=== PATIENT | male | born 1965 | race Two or more races ===

== ENCOUNTER 2016-08-19 07:30 | Emergency (ER) | payer MEDICAID ==
[~2016-08-19] VITALS: Ht 180.3 cm; Wt 81.6 kg
[~2016-08-19 07:30] MED LIST: BACLOFEN10 MG ORAL; CLINDAMYCIN HC300 MG ORAL; CLOTRIMAZOLE15 GM TOPIC; IBUPROFEN600 MG ORAL; KEFLEX500 MG ORAL; NAPROSYN500 M1 ORAL; NORCO 5-325 TA1 EACH ORAL; VICODIN 5-5001 EACH PO
[2016-08-19] MEDS ORDERED: NKM (07:45)
[2016-08-19] MEDS ORDERED: Clindamycin 900mg 50 ML IVPB ONE (08:30)
[2016-08-19] MEDS ORDERED: Tubing IV Cassette IV ONE (08:34)
[2016-08-19 08:36] LABS: BASOPHILS % (AUTO) 0.9 % (0.0-2.0); EOSINOPHILS % (AUTO) 1.3 % (0.0-3.0); LYMPHOCYTES % (AUTO) 16.2 % (20.0-45.0); MEAN CORPUSCULAR HEMOGLOBIN 32.7 PG (27.0-31.0); MEAN CORPUSCULAR HGB CONC 34.5 G/DL (32.0-36.0); MEAN CORPUSCULAR VOLUME 95 FL (80-99); MEAN PLATELET VOLUME 9.3 FL (6.5-10.1); MONOCYTES % (AUTO) 7.9 % (1.0-10.0); NEUTROPHILS % (AUTO) 73.8 % (45.0-75.0); PLATELET COUNT 168 K/UL (150-450); RED BLOOD COUNT 4.63 M/UL (4.70-6.10); RED CELL DISTRIBUTION WIDTH 11.6 % (11.6-14.8); WHITE BLOOD COUNT 9.5 K/UL (4.8-10.8)
[2016-08-19 08:45] LABS: ALANINE AMINOTRANSFERASE 39 U/L (3-41); ALBUMIN/GLOBULIN RATIO 1.6 (1.0-2.7); ANION GAP 14 (5-15); ASPARTATE AMINO TRANSFERASE 35 U/L (5-40); CALCIUM 9.7 mg/dL (8.6-10.2); CARBON DIOXIDE 27 mEQ/L (20-30); CHLORIDE 98 mEQ/L (98-107); CREATININE 1.1 mg/dL (0.7-1.2); GLOMERULAR FILTRATION RATE > 60 mL/min (>60); HEMOLYSIS 7; INR 1.1 (0.9-1.1); PROTHROMBIN TIME 11.4 SEC (9.30-11.50); SODIUM 139 mEQ/L (135-145); TOTAL PROTEIN 7.5 g/dL (6.6-8.7)
--- NOTE | 2016-08-19 09:06 | Emergency Room Report ---
History of Present Illness General Chief Complaint: Skin Rash/Abscess Source: Patient Present Illness HPI The patient states that he has been noticing some small bumps in different parts of his body. He noticed a pimple-like bump on his right face next to his lip yesterday. He states when he woke up this morning his right cheek was very swollen and tender. He has had subjective chills but denies fever. He states he had an episode of vomiting couple days ago. He denies headache or neck pain. Denies blurry vision. He has no other complaints. Allergies: Coded Allergies: No Known Allergies (Unverified , 10/28/12) Patient History Past Medical History: see triage record, DM Social History: Denies: alcohol use, drug use, smoking Reviewed Nursing Documentation: PMH: Agreed, PSxH: Agreed Nursing Documentation-PMH Past Medical History: No Stated History Hx Diabetes: Yes - borderline Review of Systems All Other Systems: negative except mentioned in HPI Physical Exam Vital Signs Date Time Temp Pulse Resp B/P Pulse Ox O2 Delivery O2 Flow Rate FiO2 08/19/16 07:40 98.2 78 14 139/87 99 Room Air Sp02 EP Interpretation: reviewed, normal General Appearance: no apparent distress, alert, GCS 15, non-toxic Head: normocephalic, atraumatic Eyes: bilateral eye PERRL, bilateral eye normal inspection ENT: hearing grossly normal, normal pharynx, no angioedema, normal voice, other - Right cheek: Quarter-sized area of swelling, tenderness and fluctuance. Neck: full range of motion, supple/symm/no masses Respiratory: no respiratory distress, no retraction, no accessory muscle use, speaking full sentences Cardiovascular #1: regular rate, rhythm, no edema Gastrointestinal: normal inspection, non-distended Rectal: deferred Musculoskeletal: gait/station normal, normal range of motion, non-tender Neurologic: alert, oriented x3, responsive, motor strength/tone normal, sensory intact, speech normal Psychiatric: judgement/insight normal, memory normal, mood/affect normal, no suicidal/homicidal ideation Skin: normal color, warm/dry, well hydrated, other - Scattered lesions that are pimple-like in appearance. Medical Decision Making Diagnostic Impression: Primary Impression: Facial abscess ER Course This patient presents with a facial abscess versus a cellulitis with phlegmon. This appears to be secondary to a pimple on his right cheek. I did not identify a dental etiology, although that is a possibility. The patient underwent CT of the face which showed an area of soft tissue induration and possible early abscess formation with phlegmon. Patient was given IV antibiotics. He is admitted to the medical surgical floor for further monitoring, evaluation and treatment. Labs Test 08/19/16 08:10 White Blood Count 9.5 K/UL (4.8-10.8) Red Blood Count 4.63 M/UL (4.70-6.10) Hemoglobin 15.1 G/DL (14.2-18.0) Hematocrit 43.9 % (42.0-52.0) Mean Corpuscular Volume 95 FL (80-99) Mean Corpuscular Hemoglobin 32.7 PG (27.0-31.0) Mean Corpuscular Hemoglobin Concent 34.5 G/DL (32.0-36.0) Red Cell Distribution Width 11.6 % (11.6-14.8) Platelet Count 168 K/UL (150-450) Mean Platelet Volume 9.3 FL (6.5-10.1) Neutrophils (%) (Auto) 73.8 % (45.0-75.0) Lymphocytes (%) (Auto) 16.2 % (20.0-45.0) Monocytes (%) (Auto) 7.9 % (1.0-10.0) Eosinophils (%) (Auto) 1.3 % (0.0-3.0) Basophils (%) (Auto) 0.9 % (0.0-2.0) Prothrombin Time 11.4 SEC (9.30-11.50) Prothromb Time International Ratio 1.1 (0.9-1.1) Activated Partial Thromboplast Time 27 SEC (23-33) Sodium Level 139 mEQ/L (135-145) Potassium Level 4.0 mEQ/L (3.4-4.9) Chloride Level 98 mEQ/L (98-107) Carbon Dioxide Level 27 mEQ/L (20-30) Anion Gap 14 (5-15) Blood Urea Nitrogen 10 mg/dL (7-23) Creatinine 1.1 mg/dL (0.7-1.2) Estimat Glomerular Filtration Rate > 60 mL/min (>60) Glucose Level 140 mg/dL (74-106) Calcium Level 9.7 mg/dL (8.6-10.2) Total Bilirubin 0.6 mg/dL (0.0-1.2) Aspartate Amino Transf (AST/SGOT) 35 U/L (5-40) Alanine Aminotransferase (ALT/SGPT) 39 U/L (3-41) Alkaline Phosphatase 43 U/L (40-129) Total Protein 7.5 g/dL (6.6-8.7) Albumin 4.7 g/dL (3.5-5.2) Globulin 2.8 g/dL Albumin/Globulin Ratio 1.6 (1.0-2.7) CT/MRI/US Diagnostic Results CT/MRI/US Diagnostic Results : Imaging Test Ordered: CT max/facial Impression Right buccal subcutaneous soft tissue swelling with asymmetric, almost masslike soft tissue enhancement, nonspecific, may represent phlegmon. No discernible abscess. No evidence of underlying dental abscess or osteomyelitis. Right maxillary sinusitis Last Vital Signs Date Time Temp Pulse Resp B/P Pulse Ox O2 Delivery O2 Flow Rate FiO2 08/19/16 07:40 98.2 78 14 139/87 99 Room Air Disposition: ADMITTED INPATIENT Condition: Serious Referrals: [facility],REFERRING (PCP) MILLICENT DUBON D.O. Aug 19, 2016 09:06
--- NOTE | 2016-08-19 10:09 | Diagnostic Imaging Report ---
Indications: Right facial swelling and tenderness, chills Technique: Continuous helical CT imaging of the face was performed with automatic exposure control on intravenous administration of nonionic iodine contrast, on a Siemens sensation [address] scanner. Axial and coronal images were reconstructed at 3 mm slice thickness. CTDI volume(s): 28.2 mGy Total DLP: 643 mGy-cm Findings: Comparison: None Artifact from metallic dental fillings degrades multiple images of the maxillary region, including in region of asymmetric, somewhat nodular soft tissue swelling and increased attenuation of the right buccal region. Overlying skin thickening. No discernible discrete fluid collection. No associated gas. No fracture or lytic destructive bony foci identified. Periosteal thickening with air-fluid level right maxillary sinus. Remaining paranasal sinuses, bilateral mastoid air cells clear. Orbital anatomy intact bilaterally. Superficial soft tissues unremarkable. IMPRESSION: Right buccal subcutaneous soft tissue swelling with asymmetric, almost masslike soft tissue enhancement, nonspecific, may represent phlegmon. No discernible abscess. No evidence of underlying dental abscess or osteomyelitis. Right maxillary sinusitis This correlates with [facility] preliminary report.
[2016-08-19 10:30] VITALS: BP 123/72
[2016-08-19 12:00] VITALS: BP 111/71
[2016-08-19 13:20] VITALS: BP 111/71
== END 2016-08-19 13:43 | disposition short-term general hospital (02) ==
LOC: EMR 08:26
DX: L02.01 Cutaneous abscess of face (principal); E11.9 Type 2 diabetes mellitus without complications
CPT/HCPCS: 36415; 70487; 80053; 85025; 85610; 85730; 96374; 99285; Q9967; S0077